=== PATIENT | female | born 1960 | race American Indian/Alaskan Native ===

== ENCOUNTER 2016-02-29 01:51 | Emergency (ER) | payer SELFPAY ==
[2016-02-29 02:22] VITALS: BP 188/81
[2016-02-29 03:02] LABS: Basophils % (Auto) 0.5 % (0.0-1.8); Eosinophils % (Auto) 3.3 % (0.0-4.3); Hematocrit 38.9 % (30.3-42.9); Hemoglobin 12.4 gm/dl (10.1-14.3); Mean Corpuscular HGB Conc 32 % (30-34); Mean Corpuscular Hemoglobin 27 pg (28-32); Mean Corpuscular Volume 84 fl (79-97); Platelet Count 237 K/mm3 (140-440); Red Blood Count 4.63 M/mm3 (3.65-5.03); Red Cell Distribution Width 13.5 % (13.2-15.2); White Blood Count 11.1 K/mm3 (4.5-11.0)
[2016-02-29 03:11] LABS: BUN/Creatinine Ratio 23.75; Blood Urea Nitrogen 19 mg/dL (7-17); Calcium 8.6 mg/dL (8.4-10.2); Carbon Dioxide 25 mmol/L (22-30); Chloride 101.5 mmol/L (98-107); Glucose 104 mg/dL (65-100); Potassium 3.6 mmol/L (3.6-5.0); Sodium 140 mmol/L (137-145)
[2016-02-29 03:22] LABS: Anion Gap 17 mmol/L
--- NOTE | 2016-03-03 00:29 | ED Elopement Review ---
ED Pt Elopement review - Results review Lab results: Laboratory Tests 02/29/16 02/29/16 02:26 02:26 WBC 11.1 H RBC 4.63 Hgb 12.4 Hct 38.9 MCV 84 MCH 27 L MCHC 32 RDW 13.5 Plt Count 237 Lymph % (Auto) 29.6 Carver % (Auto) 8.7 H Eos % (Auto) 3.3 Baso % (Auto) 0.5 Lymph # 3.3 Carver # 1.0 H Eos # 0.4 Baso # 0.1 Seg Neutrophils % 57.9 Seg Neutrophils # 6.4 Sodium 140 Potassium 3.6 Chloride 101.5 Carbon Dioxide 25 Anion Gap 17 BUN 19 H Creatinine 0.8 Glucose 104 H Calcium 8.6 Troponin T < 0.010 - Call Back decision Pt Call Back Decision: Call pt to return to ED [facility] (chest pain should be further investigated.)
== END 2016-02-29 03:03 | disposition left against medical advice (07) ==
LOC: ED 01:51
DX: R07.9 Chest pain, unspecified (principal); Z53.21 Procedure and treatment not carried out due to patient leaving prior to being seen by health care provider
CPT/HCPCS: 36415; 80048; 84484; 85025; 93005; 93010

== ENCOUNTER 2017-09-20 21:11 | Emergency (ER) | payer OTHER ==
[2017-09-20 22:13] LABS: Basophils # (Auto) 0.1 K/mm3 (0.0-0.1); Basophils % (Auto) 0.4 % (0.0-1.8); Eosinophils # (Auto) 0.3 K/mm3 (0.0-0.4); Eosinophils % (Auto) 2.2 % (0.0-4.3); Hematocrit 37.7 % (30.3-42.9); Hemoglobin 12.8 gm/dl (10.1-14.3); Lymphocytes # (Auto) 2.9 K/mm3 (1.2-5.4); Lymphocytes % (Auto) 24.4 % (13.4-35.0); Mean Corpuscular HGB Conc 34 % (30-34); Mean Corpuscular Hemoglobin 28 pg (28-32); Mean Corpuscular Volume 83 fl (79-97); Monocytes # (Auto) 1.2 K/mm3 (0.0-0.8); Monocytes % (Auto) 9.7 % (0.0-7.3); Platelet Count 235 K/mm3 (140-440); Red Blood Count 4.56 M/mm3 (3.65-5.03); Red Cell Distribution Width 13.9 % (13.2-15.2)
--- NOTE | 2017-09-20 22:23 | Emergency Department Report ---
ED General Adult HPI - General Chief complaint: Chest Pain Stated complaint: CHEST PAIN Time Seen by Provider: 09/20/17 21:34 Source: patient, police, EMS Mode of arrival: Stretcher Limitations: No Limitations - History of Present Illness Initial comments: Patient complains of chest pain that started at 12:30 PM today. She describes the pain as dull in nature located in the center of her chest without radiation. 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 Patient states she has a history of heart issues including a heart attack -: Sudden Location: chest Severity scale (0 -10): 5 Consistency: constant Improves with: none Worsens with: none Associated Symptoms: denies other symptoms Treatments Prior to Arrival: none - Related Data Home Medications Medication Instructions Recorded Confirmed Last Taken Valsartan [Diovan] 160 mg PO DAILY 05/04/13 01/16/14 01/15/14 Aspirin [Aspirin BABY CHEW TAB] 81 mg PO DAILY 01/16/14 01/16/14 01/15/14 Famotidine [Pepcid] 20 mg PO BID 01/16/14 01/16/14 01/15/14 Previous Rx's Medication Instructions Recorded Last Taken Type Pantoprazole [Protonix] 40 mg PO QDAY #30 tablet 01/17/14 Unknown Rx hydrALAZINE [Apresoline TAB] 25 mg PO Q8HR #90 tablet 01/17/14 Unknown Rx Allergies Allergy/AdvReac Type Severity Reaction Status Date / Time No Known Allergies Allergy Verified 05/04/13 23:32 ED Review of Systems ROS: Stated complaint: CHEST PAIN Other details as noted in HPI Comment: All other systems reviewed and negative Constitutional: denies: chills, fever Eyes: denies: eye pain, eye discharge, vision change ENT: denies: ear pain, throat pain Respiratory: denies: cough, shortness of breath, wheezing Cardiovascular: chest pain. denies: palpitations Endocrine: no symptoms reported Gastrointestinal: denies: abdominal pain, nausea, diarrhea Genitourinary: denies: urgency, dysuria, discharge Musculoskeletal: denies: back pain, joint swelling, arthralgia Skin: denies: rash, lesions Neurological: denies: headache, weakness, paresthesias Psychiatric: denies: anxiety, depression Hematological/Lymphatic: denies: easy bleeding, easy bruising ED Past Medical Hx - Past Medical History Previous Medical History?: Yes Hx Hypertension: Yes Hx CVA: Yes (MINI STROKE) Hx Heart Attack/AMI: Yes Hx Congestive Heart Failure: Yes Hx GERD: Yes Hx Asthma: Yes - Surgical History Past Surgical History?: Yes Additional Surgical History: TUBAL LIGATION - Social History Smoking Status: Unknown if ever smoked Substance Use Type: None - Medications Home Medications: Home Medications Medication Instructions Recorded Confirmed Last Taken Type Valsartan [Diovan] 160 mg PO DAILY 05/04/13 01/16/14 01/15/14 History Aspirin [Aspirin BABY CHEW TAB] 81 mg PO DAILY 01/16/14 01/16/14 01/15/14 History Famotidine [Pepcid] 20 mg PO BID 01/16/14 01/16/14 01/15/14 History Pantoprazole [Protonix] 40 mg PO QDAY #30 tablet 01/17/14 Unknown Rx hydrALAZINE [Apresoline TAB] 25 mg PO Q8HR #90 tablet 01/17/14 Unknown Rx ED Physical Exam - General Limitations: No Limitations General appearance: alert, in no apparent distress - Head Head exam: Present: atraumatic, normocephalic - Eye Eye exam: Present: normal appearance, PERRL, EOMI - ENT ENT exam: Present: mucous membranes moist - Neck Neck exam: Present: normal inspection - Respiratory Respiratory exam: Present: normal lung sounds bilaterally. Absent: respiratory distress, wheezes, rales - Cardiovascular Cardiovascular Exam: Present: regular rate, normal rhythm. Absent: systolic murmur, diastolic murmur, rubs, gallop - GI/Abdominal GI/Abdominal exam: Present: soft, normal bowel sounds. Absent: distended, tenderness - Extremities Exam Extremities exam: Present: normal inspection - Back Exam Back exam: Present: normal inspection - Neurological Exam Neurological exam: Present: alert, oriented X3, CN II-XII intact. Absent: motor sensory deficit - Psychiatric Psychiatric exam: Present: normal affect, normal mood - Skin Skin exam: Present: warm, dry, intact, normal color. Absent: rash ED Course Vital Signs 09/20/17 09/21/17 21:42 00:19 Temperature 97.6 F Pulse Rate 76 78 Respiratory 18 Rate Blood Pressure 168/92 Blood Pressure 177/77 [Left] O2 Sat by Pulse 98 Oximetry ED Medical Decision Making - Lab Data Result diagrams: 09/20/17 21:52 09/20/17 21:52 - EKG Data -: EKG Interpreted by Me EKG shows normal: sinus rhythm Rate: bradycardia - EKG Data Interpretation: other (sinus bradycardia with LVH) - Medical Decision Making Discussed results with patient Critical care attestation.: If time is entered above; I have spent that time in minutes in the direct care of this critically ill patient, excluding procedure time. ED Disposition Clinical Impression: Nonspecific chest pain Disposition: DC-01 TO HOME OR SELFCARE Is pt being admited?: No Does the pt Need Aspirin: No Condition: Stable Instructions: Chest Pain (ED) Additional Instructions: return if worse Referrals: PRIMARY CAREMD [Primary Care Provider] - 3-5 Days MAKSIM MELGAR MD [Staff Physician] - 3-5 Days
[2017-09-20 22:28] LABS: BUN/Creatinine Ratio 23; Blood Urea Nitrogen 21 mg/dL (7-17); Calcium 9.3 mg/dL (8.4-10.2); Hemolysis Index 6
[2017-09-20 22:45] LABS: Alanine Aminotransferase 11 units/L (7-56); Albumin 3.8 g/dL (3.9-5)
[2017-09-20 22:46] LABS: Bilirubin,Direct < 0.2 mg/dL (0-0.2)
--- NOTE | 2017-09-20 22:58 | XRay Report ---
FINAL REPORT EXAM: XR CHEST 1V AP HISTORY: chest pain TECHNIQUE: X-ray chest, one view Comparison: None FINDINGS: There is no evidence of focal infiltrate, pneumothorax or pleural fluid collection. The cardiac silhouette is enlarged. The thoracic aorta is mildly tortuous. There is prominence of the pulmonary venous vasculature suggestive of pulmonary venous congestion. The bony structures are notable for evidence of degenerative change of the shoulder joints bilaterally. Visualization detail of the thoracic spine is limited. IMPRESSION: 1. Enlarged cardiac silhouette. 2. Prominence of the pulmonary venous vasculature suggestive of pulmonary venous congestion. 3. Evidence of degenerative change of the shoulder joints bilaterally.
[2017-09-21 00:20] VITALS: BP 177/77
== END 2017-09-21 02:02 | disposition home or self-care (01) ==
LOC: EEVIPCON 21:11 → ED 21:11
DX: R07.9 Chest pain, unspecified (principal); I11.0 Hypertensive heart disease with heart failure; I50.9 Heart failure, unspecified; Z86.73 Personal history of transient ischemic attack (TIA), and cerebral infarction without residual deficits; K21.9 Gastro-esophageal reflux disease without esophagitis; J45.909 Unspecified asthma, uncomplicated; I25.2 Old myocardial infarction; Z79.899 Other long term (current) drug therapy
CPT/HCPCS: 36415; 71045; 80048; 80074; 84484; 85025; 93005; 93010